=== PATIENT | female | born 1965 | race Two or more races ===

== ENCOUNTER 2016-07-12 11:28 | Emergency (ER) | payer OTHER ==
[~2016-07-12] VITALS: Ht 165.1 cm; Wt 86.0 kg
[2016-07-12 11:44] VITALS: BP 126/74
== END 2016-07-12 15:30 | disposition left against medical advice (07) ==
LOC: EME 11:28
DX: M79.671 Pain in right foot (principal); Z53.21 Procedure and treatment not carried out due to patient leaving prior to being seen by health care provider